=== PATIENT | male | born 1975 | race African-American/Black ===

== ENCOUNTER 2017-12-15 10:22 | Outpatient (RCR) | payer OTHER | END 2018-03-15 | disposition home or self-care (01) | LOC: WSOH | DX: S46.012A Strain of muscle(s) and tendon(s) of the rotator cuff of left shoulder, initial encounter (principal); X50.0XXA Overexertion from strenuous movement or load, initial encounter; Y92.59 Other trade areas as the place of occurrence of the external cause; Y99.0 Civilian activity done for income or pay ==